=== PATIENT | male | born 1985 ===

== ENCOUNTER 2019-02-19 18:46 | Emergency (ER) | payer SELFPAY ==
[2019-02-19 19:03] VITALS: BMI 21.2
[2019-02-19 19:07] VITALS: BP 108/73; PULSE 66; RESP 16; TEMP 98.6; O2SAT 98
[2019-02-19] MEDS ORDERED: Lidocaine 5% Patch TD STA (19:35)
--- NOTE | 2019-02-19 19:46 | ED PDOC ---
Arrival/HPI - General Chief Complaint: Back Pain Time Seen by Provider: 02/19/19 19:16 Historian: Patient - History of Present Illness Narrative History of Present Illness (Text): 02/19/19 19:43 34-year-old male with no significant past medical history presents emergency room complaining of 10-day history of nonradiating atraumatic pain to the lower back/sacral region worse with movement and walking, reproducible with palpation. Patient states that the pain has been constant, has been taking Tylenol without improvement of the pain. Otherwise he reports no fever, chills, abdominal pain, nausea, vomiting, urinary symptoms, bowel/bladder incontinence, numbness, weakness. Of note, patient states that he has had similar pain in the past. Past Medical History - Psychiatric Hx Substance Use: No Family/Social History Family/Social History: No Known Family HX Smoking Status: Never Smoked Hx Alcohol Use: No Hx Substance Use: No Allergies/Home Meds Allergies/Adverse Reactions: Allergies No Known Allergies Allergy (Verified 02/19/19 19:03) Review of Systems - Review of Systems Constitutional: absent: Fatigue, Fevers Respiratory: absent: SOB, Cough Cardiovascular: absent: Chest Pain, Palpitations Gastrointestinal: absent: Abdominal Pain, Diarrhea, Vomiting Genitourinary Male: absent: Dysuria, Frequency, Hematuria Musculoskeletal: Back Pain. absent: Arthralgias, Neck Pain Skin: absent: Rash, Pruritis, Skin Lesions Neurological: absent: Headache, Dizziness, Focal Weakness Physical Exam Vital Signs Temp Pulse Resp BP Pulse Ox 02/19/19 19:05 98.6 F 66 16 108/73 98 Temperature: Afebrile Blood Pressure: Normal Pulse: Regular Respiratory Rate: Normal Appearance: Positive for: Well-Appearing, Non-Toxic, Comfortable Pain Distress: Moderate Mental Status: Positive for: Alert and Oriented X 3 - Systems Exam Head: Present: Atraumatic, Normocephalic Pupils: Present: PERRL Extroacular Muscles: Present: EOMI Conjunctiva: Present: Normal Mouth: Present: Moist Mucous Membranes Neck: Present: Normal Range of Motion. No: Meningeal Signs, MIDLINE TENDERNESS, Paraspinal Tenderness, Lymphadenopathy Respiratory/Chest: Present: Clear to Auscultation, Good Air Exchange. No: Respiratory Distress, Accessory Muscle Use Cardiovascular: Present: Regular Rate and Rhythm, Normal S1, S2. No: Murmurs Abdomen: No: Tenderness, Distention, Peritoneal Signs Back: Present: Normal Inspection, Midline Tenderness (to L5 and sacral area), Pain with Leg Raise (to the L leg). No: CVA Tenderness, Paraspinal Tenderness, Decubitus Ulcer, Other (no pilonidal cyst/abscess, no rash, no lesions, no erythema) Upper Extremity: Present: Normal Inspection. No: Cyanosis, Edema Lower Extremity: Present: Normal Inspection, NORMAL PULSES. No: Edema, Tenderness, Swelling Neurological: Present: GCS=15, CN II-XII Intact, Speech Normal, Motor Func Grossly Intact, Normal Sensory Function Skin: Present: Warm, Dry, Normal Color. No: Rashes Psychiatric: Present: Alert, Oriented x 3, Normal Insight, Normal Concentration Medical Decision Making ED Course and Treatment: 02/19/19 19:46 Plan : - L spine XR - Sacrum & coccyx XR - Toradol IM - Flexeril PO - Lidoderm patch L spine XR : no fracture or deformity. Sacrum & coccyx XR : no fracture or deformity. On reevaluation, patient reports improvement of symptoms, denies any abdominal pain, numbness, weakness, bowel/bladder incontinence. On exam, patient remains awake alert and oriented 3 in no acute distress, patient is smiling and in good spirits. Repeat neuro exam shows no focal findings. Patient able to stand and ambulate. Advised to follow up with the clinic in 1-2 days without fail. Advised to take medication as prescribed. Return to the emergency room at any time for any new or worsening symptoms. Patient states he fully agrees with and understands discharge instructions. States that he agrees with the plan and disposition. Verbalized and repeated discharge instructions and plan. I have given the patient opportunity to ask any additional questions. - RAD Interpretation Radiology Orders: 02/19/19 19:36 LS SPINE WITH OBL > 18 YRS OLD [RAD] Stat 02/19/19 19:39 SACRUM &/or COCCYX (MIN 2VW) [RAD] Stat - Medication Orders Current Medication Orders: Discontinued Medications Cyclobenzaprine HCl (Flexeril) 10 mg PO STAT STA Stop: 02/19/19 19:36 Ketorolac Tromethamine (Toradol) 60 mg IM STAT STA Stop: 02/19/19 19:36 Lidocaine (Lidoderm) 1 ea TD STAT STA Stop: 02/19/19 19:36 - PA / [employer] / Resident Statement MD/ has reviewed & agrees with the documentation as recorded. Disposition/Present on Arrival - Present on Arrival Any Indicators Present on Arrival: No History of DVT/PE: No History of Uncontrolled Diabetes: No Urinary Catheter: No History of Decub. Ulcer: No History Surgical Site Infection Following: None - Disposition Have Diagnosis and Disposition been Completed?: Yes Diagnosis: Low back pain Disposition: HOME/ ROUTINE Disposition Time: 21:00 Patient Plan: Discharge Condition: STABLE Discharge Instructions (ExitCare): Low Back Pain (DC), Sciatica Print Language: THAI Additional Instructions: Thank you for letting us take care of you today. You were treated for low back pain, sciatica. The emergency medical care you received today was directed at your acute symptoms. If you were prescribed any medication, please fill it and take as directed. It may take several days for your symptoms to resolve. Return to the Emergency Department if your symptoms worsen, do not improve, or if you have any other problems. Please follow up with the clinic in 2 days for re-evaluation and follow up. Bring any paperwork you were given at discharge with you along with any medications you are taking to your follow up visit. Our treatment cannot replace ongoing medical care by a primary care provider (PCP) outside of the emergency department. Thank you for allowing the [facility] team to be part of your care today. Prescriptions: Cyclobenzaprine [Cyclobenzaprine HCl] 10 mg PO TID PRN #15 tab PRN Reason: Muscle Spasm Meloxicam [Mobic] 15 mg PO DAILY #20 tab Forms: [employer] (French), WORK NOTE
--- NOTE | 2019-02-20 10:17 | RAD ---
Date of service: 02/19/2019 PROCEDURE: Radiographs of the Lumbar Spine. HISTORY: pain, pls do 3 views COMPARISON: No prior. TECHNIQUE: 5 views obtained. FINDINGS: BONES: Normal alignment. No listhesis. Old fracture of the left L1 transverse process. DISC SPACES: Unremarkable. OTHER FINDINGS: None. IMPRESSION: Unremarkable radiographs of the lumbar spine.
--- NOTE | 2019-02-20 10:17 | RAD ---
Date of service: 02/19/2019 PROCEDURE: Radiographs of the Sacrum and Coccyx HISTORY: pain COMPARISON: None available. TECHNIQUE: Frontal and lateral views of the sacrum and coccyx. 4 views obtained. FINDINGS: BONES: Sacrum and coccyx unremarkable. No fracture or focal lesion. SACROILIAC JOINTS: Unremarkable. OTHER FINDINGS: None. IMPRESSION: Unremarkable radiographs of the sacrum and coccyx.
== END 2019-02-19 21:41 | disposition home or self-care (01) ==
LOC: ED 18:46
DX: M54.5 Low back pain (principal)
CPT/HCPCS: 72100; 72220; 96372; 99282; J1885